=== PATIENT | female | born 1960 | race Caucasian/White ===

== ENCOUNTER 2017-01-19 07:13 | Day surgery (SDC) | payer BC ==
[~2017-01-19] VITALS: Ht 165.1 cm; Wt 77.6 kg
== END 2017-01-19 09:35 | disposition short-term general hospital (02) ==
LOC: SURGOP 07:13
PROC: 0DBM8ZZ Excision of Descending Colon, Via Natural or Artificial Opening Endoscopic (ICD-10-PCS; principal; 2017-01-19)
DX: Z12.11 Encounter for screening for malignant neoplasm of colon (principal); D12.4 Benign neoplasm of descending colon; E03.9 Hypothyroidism, unspecified; L81.1 Chloasma; I10 Essential (primary) hypertension; Z79.899 Other long term (current) drug therapy; Z88.2 Allergy status to sulfonamides; Z87.19 Personal history of other diseases of the digestive system; Z98.84 Bariatric surgery status; Z90.721 Acquired absence of ovaries, unilateral; Z98.51 Tubal ligation status; Z82.49 Family history of ischemic heart disease and other diseases of the circulatory system; Z82.3 Family history of stroke; Z80.1 Family history of malignant neoplasm of trachea, bronchus and lung; Z87.891 Personal history of nicotine dependence
CPT/HCPCS: J2175; J2250